=== PATIENT | male | born 1985 ===

== ENCOUNTER → 2024-08-19 | Emergency (ER) | payer OTHER ==
[~2024-08-19] VITALS: Ht 165.1 cm; Wt 65.3 kg
[~2024-08-19] MED LIST: 0.9 % SODIUM CHLORIDE 1,000 ML IV ONE; DICYCLOMINE HCL 20 MG TABLET PO ONE; FAMOtidine 10 MG/ML (4ML VIAL) IV ONE; KETOROLAC TROMETHAMINE 60 MG VIAL IM ONE; ONDANSETRON HCL 2 MG/ML VIAL IV ONE
[2024-08-19 15:49] VITALS: BP 130/86; O2SAT 100
[2024-08-19 17:04] LABS: HEMATOCRIT 45.5 % (39.0-48.0); HEMOGLOBIN 15.7 g/dL (13-16.00); MEAN CELL VOLUME 83.8 fL (80.0-100.00); MEAN CORPUSCULAR HEMOGLOBIN 28.9 pg (27.00-32.0); MEAN CORPUSCULAR HGB CONC 34.4 g/dl (32.0-36.0); PLATELET COUNT 294 K/uL (150-450); RED BLOOD COUNT 5.44 M/uL (4.00-6.00); RED CELL DISTRIBUTION WIDTH 13.5 % (11.5-14.5)
[2024-08-19 17:21] LABS: ALBUMIN 4.3 gm/dL (3.4-5.0); BILIRUBIN TOTAL 0.62 mg/dL (0.3-1.2); CALCIUM 8.9 mg/dL (8.5-10.1); CREATININE SERUM 0.98 mg/dL (0.70-1.30); GFR 85.6; GLOBULINA 4.1 G/DL (2.4-3.5); POTASSIUM 3.69 mEq/L (3.5-5.1); TOTAL PROTEIN 8.4 gm/dL (6.4-8.2)
[2024-08-19 18:33] LABS: PH,URINE 6.5 (5.0-8.0); URINE APPEARANCE Clear; URINE BILIRRUBIN Negative (NEGATIVE); URINE BLOOD Trace; URINE COLOR Yellow; URINE GLUCOSE Negative (NEGATIVE); URINE KETONE 15 (NEGATIVE); URINE LEUKOCYTE Negative; URINE NITRATE Negative; URINE PROTEIN Trace (NEGATIVE); URINE UROBILINOGEN 0.2 E.U./dl
[2024-08-19 18:37] LABS: URINE BACTERIA 23.2 uL (0.0-1933); URINE RBC 23.4 uL (0.0-20.8); URINE WBC 4.2 uL (0.0-23.2)
== END | disposition left against medical advice (07) ==
LOC: ER 14:40
PROVIDERS: General Practice
DX: K80.18 Calculus of gallbladder with other cholecystitis without obstruction (principal); R10.9 Unspecified abdominal pain; R19.7 Diarrhea, unspecified; R11.2 Nausea with vomiting, unspecified